=== PATIENT | male | born 1960 | race Caucasian/White ===

== ENCOUNTER 2017-03-02 07:09 | Day surgery (SDC) | payer OTHER ==
[~2017-03-02] VITALS: Ht 185.4 cm; Wt 115.7 kg
[~2017-03-02 07:09] MED LIST: A&D OINTMENT60 GM TP; ADVAIR 250/501 DISK IH; ANTI-DIARRHEA2 MG PO; APRESOLINE100 MG PO; ARANESP150 MCG/0. IV; ATIVAN0.5 MG PO; BASAGLAR K100 UNIT/1 SC; BREO ELLIPTA I1 EACH IH; CORDARONE200 MG PO; FLAGYL500 MG PO; GAVISCON ES CH1 EACH PO; GLUCOPHAGE500 MG PO; HUMALOG100 UNIT/2 SC; ISOSORBIDE DINI30 MG PO; JANUVIA25 M1 PO; JUVEN PACKET1 EACH PO; LAMICTAL100 MG PO; LEVEMIR FL100 UNIT/1 SC; LEXAPRO20 MG PO; LO-DOSE ASPIRIN81 M2 PO; LOPRESSOR50 MG PO; NEURONTIN300 MG PO; NORCO 7.5/321 TABLET PO; PREDNISONE10 MG PO; PRILOSEC20 MG PO; PROCARDIA XL30 MG PO; PROCARDIA XL90 MG PO; PROTONIX40 MG PO; SILVADENE20 GM TP; SILVASORB1.5 OZ TP; SPIRIVA1 INHALATI IH; VANCOMYCIN1 GM/150 M IV; VENTOLIN HFA18 GM IH; VITAMIN D35000 UNIT PO; XANAX0.25 MG PO; ZEMPLAR 22 MCG/1 ML IV; ZOFRAN4 MG PO
[2017-03-02 07:27] LABS: HEMATOCRIT 35.2 % (38.0-50.0); MCH 29.4 PG (29.0-34.0); MCHC 29.8 G/DL (30.0-36.0); MCV 98.6 FL (86-99); MEAN PLAT.VOLUME 9.4 uM^3 (9.0-12.4); PLATELET COUNT 181 K/uL (156-360); RBC DIS.WIDTH-CV 15.6 % (11.8-14.6); RBC DIS.WIDTH-SD 55.7 % (39-53); RED BLOOD COUNT 3.57 M/uL (4.00-5.50); WHITE BLOOD COUNT 6.1 K/uL (4.1-10.2)
[2017-03-02 07:47] LABS: ANION GAP 5 MEQ/L (2-14); CHLORIDE 103 MEQ/L (99-109); POTASSIUM 4.8 MEQ/L (3.7-5.4); SAMPLE HEMOLYSIS CHECK 0; SAMPLE ICTERIC CHECK 0; SAMPLE LIPEMIA CHECK 0; SODIUM 140 MEQ/L (136-147)
[2017-03-02 07:53] LABS: GFR ESTIMATE (CALCULATED) 15 mL/min/; GLUCOSE 106 mg/dL (70-99); UREA NITROGEN (BUN) 36 mg/dL (9-23)
[2017-03-02 08:06] VITALS: BP 159/71
[2017-03-02 08:53] LABS: METH RESISTANT S AUREUS PCR NEGATIVE (NEGATIVE)
[2017-03-02 08:57] LABS: PROBE CHECK PASS; SPECIMEN PROCESSING CONTROL PASS
[2017-03-02 11:56] LABS: POINT-OF-CARE METER ID UU13113675
[2017-03-02 13:20] VITALS: BP 138/64
[2017-03-02 14:00] VITALS: BP 139/60
== END 2017-03-02 15:10 ==
LOC: SDC 07:09
PROVIDERS: Surgery
DX: I12.0 Hypertensive chronic kidney disease with stage 5 chronic kidney disease or end stage renal disease (principal); E11.22 Type 2 diabetes mellitus with diabetic chronic kidney disease; N18.6 End stage renal disease; Z99.2 Dependence on renal dialysis; E78.00 Pure hypercholesterolemia, unspecified; Z87.891 Personal history of nicotine dependence; J44.9 Chronic obstructive pulmonary disease, unspecified; Z79.82 Long term (current) use of aspirin; Z79.4 Long term (current) use of insulin; K21.9 Gastro-esophageal reflux disease without esophagitis
CPT/HCPCS: 80048; 82948; 85027; 87641; J1644; J2250; J2704; J2720